=== PATIENT | female | born 1950 | race Caucasian/White ===

== ENCOUNTER 2020-01-13 00:31 | Inpatient (IN) | payer MEDICARE ==
[~2020-01-13] VITALS: Ht 170.2 cm; Wt 70.8 kg
--- NOTE | 2020-01-13 00:40 | NUR ---
Dr. Rivera at bedside for MSE.
[2020-01-13] MEDS ORDERED: NITROGLYCERIN OINT 1 GM PACKET TP ONE ×2 (01:00→01:08)
[2020-01-13 01:14] LABS: BASOPHILS # (AUTO) 0.1 K/uL (0.0-8.0); EOSINOPHILS # (AUTO) 0.2 K/uL (0.0-0.7); EOSINOPHILS % (AUTO) 2.9 % (0.0-7.0); HEMATOCRIT 36.5 % (31.2-41.9); HEMOGLOBIN 12.6 g/dL (10.9-14.3); LYMPHOCYTES # (AUTO) 1.8 K/uL (20.0-40.0); LYMPHOCYTES % (AUTO) 26.7 % (20.5-51.5); MEAN CORPUSCULAR HEMOGLOBIN 32.1 uug (24.7-32.8); MEAN CORPUSCULAR HGB CONC 35 g/dL (32.3-35.6); MONOCYTES # (AUTO) 0.5 K/uL (2.0-10.0); MONOCYTES % (AUTO) 7.1 % (0.0-11.0); NEUTROPHILS # (AUTO) 4.1 K/uL (1.8-8.9); NEUTROPHILS % (AUTO) 62.3 % (38.5-71.5); PLATELET COUNT (AUTO) 200 K/uL (179-408); RED BLOOD CELL COUNT(AUTO) 3.92 MIL/uL (3.63-4.92); WHITE BLOOD COUNT (AUTO) 6.6 K/uL (3.8-11.8)
--- NOTE | 2020-01-13 01:15 | NUR ---
Xray at bedside.
[2020-01-13 01:16] LABS: CREATININE 0.9 mg/dL (0.6-1.3); POTASSIUM 3.7 mmol/L (3.5-5.1)
[2020-01-13 01:33] LABS: BILIRUBIN,DIRECT 0.1 mg/dL (0.0-0.2); BILIRUBIN,TOTAL 0.3 mg/dL (0.2-1.0); TOTAL PROTEIN, SERUM 6.5 g/dL (6.4-8.2)
--- NOTE | 2020-01-13 03:13 | NUR ---
Called [facility] to anthony Ball NP.
--- NOTE | 2020-01-13 03:24 | NUR ---
Dr. Rivera on panel call with Darien Ball NP. Patient accepted for admission to [facility], diagnosis: chestpain.
[2020-01-13] MEDS ORDERED: MAGNESIUM HYDROXIDE 30 ML LIQUID UDC PO PRN (03:30)
[2020-01-13] MEDS ORDERED: ACETAMINOPHEN 325 MG TABLET PO PRN (03:30)
[2020-01-13] MEDS ORDERED: MORPHINE SULFATE 2 MG/1 ML DISP.SYRIN IV PRN (03:30)
[2020-01-13] MEDS ORDERED: ONDANSETRON 4 MG/2 ML VIAL IV PRN (03:30)
[2020-01-13] MEDS ORDERED: HYDROCODONE/APAP 5-325MG TABLET PO PRN (03:30)
[2020-01-13] MEDS ORDERED: NITROGLYCERIN 0.4 MG/TAB BOTTLE SL ONE (03:45)
--- NOTE | 2020-01-13 03:50 | NUR ---
Report given to Bessy MCKEON Tele.
[2020-01-13 04:20] VITALS: BP 141/67
--- NOTE | 2020-01-13 04:20 | NUR ---
PATIENT IS A 69 YEAR OLD FEMALE ADMITTED TO TELEMETRY FROM THE EMERGENCY DEPT. WITH DIAGNOSIS OF CHEST PAIN RULE OUT ACS. VITAL SIGNS WITHIN NORMAL. TELE MONITOR ATTACHED TO PATIENT, SHOWING SINUS BRADYCARDIA. IV IN THE RIGHT A/C 20G FLUSHING, PATENT, AND INTACT. PATIENT COMPLAINS OF CHEST PAIN ABOUT 6/10 NONRADIATING. WILL MEDICATE APPROPRIATELY. ADMISSION ORDERS CARRIED OUT. WILL CONTINUE TO MONITOR PATIENT.
[2020-01-13] MEDS ORDERED: NITROGLYCERIN 0.4 MG/TAB BOTTLE SL PRN (06:00)
[2020-01-13 06:53] LABS: BILIRUBIN,TOTAL 0.7 mg/dL (0.2-1.0); CREATININE 0.7 mg/dL (0.6-1.3); MAGNESIUM 2.1 mg/dL (1.8-2.4); PHOSPHOROUS 3.9 mg/dL (2.5-4.9); POTASSIUM 4.2 mmol/L (3.5-5.1); TOTAL PROTEIN, SERUM 6.8 g/dL (6.4-8.2)
[2020-01-13] MEDS ORDERED: PANTOPRAZOLE SODIUM 40 MG TABLET.DR PO SCH (07:00)
[2020-01-13 07:01] LABS: THYROID STIMULATING HORMONE 0.98 mIU/mL (0.358-3.740)
[2020-01-13 07:38] LABS: BASOPHILS # (AUTO) 0.1 K/uL (0.0-8.0); EOSINOPHILS # (AUTO) 0.1 K/uL (0.0-0.7); EOSINOPHILS % (AUTO) 2.4 % (0.0-7.0); HEMATOCRIT 37.4 % (31.2-41.9); HEMOGLOBIN 12.8 g/dL (10.9-14.3); LYMPHOCYTES # (AUTO) 1.4 K/uL (20.0-40.0); LYMPHOCYTES % (AUTO) 23.8 % (20.5-51.5); MEAN CORPUSCULAR HGB CONC 34 g/dL (32.3-35.6); MEAN CORPUSCULAR VOLUME 93.9 fL (75.5-95.3); MONOCYTES # (AUTO) 0.4 K/uL (2.0-10.0); MONOCYTES % (AUTO) 6.9 % (0.0-11.0); NEUTROPHILS % (AUTO) 65.9 % (38.5-71.5); PLATELET COUNT (AUTO) 191 K/uL (179-408); RED BLOOD CELL COUNT(AUTO) 3.99 MIL/uL (3.63-4.92); WHITE BLOOD COUNT (AUTO) 6.1 K/uL (3.8-11.8)
--- NOTE | 2020-01-13 07:40 | NUR ---
Received patient in bed, awake ad verbally responsive. No signs of distress noted. No SOB. No complain of pain or discomfort. Denies chest pain. Kept the call light within easy reach. Kept comfortable. Will continue to monitor.
[2020-01-13] MEDS ORDERED: SWABABLE VALVE TRANSFER SET EA MC ONE (07:58)
[2020-01-13] MEDS ORDERED: IV NORMAL SALINE 250 ML IV ONE (07:58)
[2020-01-13] MEDS ORDERED: IOHEXOL 350 100 ML INFUS..BTL ONE (07:58)
--- NOTE | 2020-01-13 08:00 | NUR ---
Seen by Dr. Griffin with Order of CTA of Chest for Dissection. Consent signed by patient.
[2020-01-13] MEDS ORDERED: ASPIRIN 81 MG TAB.CHEW PO SCH (09:00)
[2020-01-13] MEDS ORDERED: METOPROLOL TARTRATE 25 MG TABLET PO SCH ×2 (09:00)
[2020-01-13] MEDS ORDERED: METOPROLOL SUCCINATE XL 25 MG TAB.SR.24H PO SCH (09:24)
[2020-01-13 11:04] VITALS: BP 100/47
--- NOTE | 2020-01-13 13:10 | NUR ---
Patient is awake , alert and verbally responsive. No signs of distress noted. No complain of chest pain/discomfort. Patient with order to Discharge Home today, Discharge Instruction given and verbalized Understanding. All belongings was signed and sent with Patient. Removed IV site, environmental monitoring specialist and wrist band. Patient left in stable condition accompanied by friend.
[2020-01-13] MEDS ORDERED: ATORVASTATIN 20 MG TABLET PO SCH (21:00)
== END 2020-01-13 13:10 | disposition home or self-care (01) | DRG 206 ==
LOC: ER 00:35 → TELE3 04:11 → MEDSURG3 13:01
PROVIDERS: ADMIT Nurse Practitioner Acute Care; ATTEND Nurse Practitioner Acute Care
DX: M94.0 Chondrocostal junction syndrome [Tietze] (principal); J98.11 Atelectasis; E87.1 Hypo-osmolality and hyponatremia; J43.2 Centrilobular emphysema; K21.9 Gastro-esophageal reflux disease without esophagitis; M06.9 Rheumatoid arthritis, unspecified; E78.5 Hyperlipidemia, unspecified; N64.4 Mastodynia; Z79.890 Hormone replacement therapy; Z82.49 Family history of ischemic heart disease and other diseases of the circulatory system; Z82.61 Family history of arthritis; Z79.82 Long term (current) use of aspirin; Z87.891 Personal history of nicotine dependence; Z95.2 Presence of prosthetic heart valve; I71.2 Thoracic aortic aneurysm, without rupture; I10 Essential (primary) hypertension
CPT/HCPCS: 36415; 70030-TC; 71045; 83605; 83735; 84100; 84443; 85025; 85730; 87040; 93005; 93307; A4663; G0378; J2270; J7050; Q9967